=== PATIENT | female | born 1985 | race Two or more races ===

== ENCOUNTER 2022-03-07 08:42 | Emergency (ER) | payer OTHER ==
[2022-03-07 08:46] VITALS: BMI 28.6
[2022-03-07] MEDS ORDERED: ACETAMINOPHEN 1000 MG/100 ML BAG IVPB ONE (09:40)
[2022-03-07] MEDS ORDERED: ACETAMINOPHEN 325 MG TABLET (FP) PO ONE (09:43)
[2022-03-07] MEDS ORDERED: ACETAMINOPHEN 325 MG TABLET (FP) ONE (09:44)
[2022-03-07 11:09] VITALS: TEMP 98.3
[2022-03-07 13:11] VITALS: RESP 18
[2022-03-07 14:02] VITALS: BP 127/83; PULSE 112
[2022-03-07 14:29] LABS: BASO % 0.2 % (0-2.0); EOS % 0.1 % (0-4.5); HEMATOCRIT 32.5 % (32.4-45.2); HEMOGLOBIN 11.3 GM/dL (10.7-15.3); LYMPH % 5.4 % (8-40); MCH 31.2 pg (25.7-33.7); MCHC 34.8 g/dl (32.0-36.0); MEAN CELL VOLUME 89.6 fl (80-96); MEAN PLT VOLUME 8.4 fl (7.5-11.1); MONO % 10.8 % (3.8-10.2); NEUT % 83.5 % (42.8-82.8); PLATELET COUNT 221 10^3/uL (134-434); RBC 3.63 M/mm3 (3.60-5.2); RDW 13.3 % (11.6-15.6); WHITE BLOOD COUNT 9.5 K/mm3 (4.0-10.0)
[2022-03-07 14:45] LABS: CALCIUM 9.5 mg/dL (8.5-10.1)
[2022-03-07 14:46] LABS: ALBUMIN 2.9 g/dl (3.4-5.0); BLOOD UREA NITROGEN 3.3 mg/dL (7-18)
[2022-03-07 14:49] LABS: CREATININE 0.4 mg/dL (0.55-1.3)
[2022-03-23] MEDS ORDERED: OXYTOCIN 30 UNITS in 0.9% NS 30 UNIT/500 ML INFUS.BAG IVPB ONE (06:01)
== END 2022-03-07 15:10 | disposition home or self-care (01) ==
LOC: JER 08:42
DX: U07.1 COVID-19 (principal)
CPT/HCPCS: 0241U-QW; 36415; 80053; 85025; 93005; 93010; 99291

== ENCOUNTER 2022-03-22 16:10 | Inpatient (IN) | payer OTHER ==
[2022-03-22] MEDS ORDERED: DINOPROSTONE 10 MG VAGINAL SUPPOSITORY VG ONE (17:18)
[2022-03-22 17:40] VITALS: BMI 28.6
[2022-03-22] MEDS: ELECTROLYTE-148 SOLN 1,000 ML IV SCH (18:00)
[2022-03-22 18:58] LABS: BASO % 0.4 % (0-2.0); EOS % 0.4 % (0-4.5); HEMATOCRIT 35.1 % (32.4-45.2); HEMOGLOBIN 11.8 GM/dL (10.7-15.3); LYMPH % 17.2 % (8-40); MCH 30.2 pg (25.7-33.7); MCHC 33.7 g/dl (32.0-36.0); MEAN CELL VOLUME 89.5 fl (80-96); MEAN PLT VOLUME 8.9 fl (7.5-11.1); MONO % 7.7 % (3.8-10.2); NEUT % 74.3 % (42.8-82.8); PLATELET COUNT 318 10^3/uL (134-434); RBC 3.92 M/mm3 (3.60-5.2); RDW 13.3 % (11.6-15.6)
[2022-03-23] MEDS: ELECTROLYTE-148 SOLN 1,000 ML IV SCH ×2 (01:40→20:18)
[2022-03-23] MEDS ORDERED: ACETAMINOPHEN 325 MG TABLET (FP) ONE (02:01)
[2022-03-23] MEDS ORDERED: ACETAMINOPHEN 325 MG TABLET (FP) PO ONE (03:30)
[2022-03-23] MEDS ORDERED: OXYTOCIN 30 UNITS in 0.9% NS 30 UNIT/500 ML INFUS.BAG IVPB SCH (06:00)
[2022-03-23] MEDS ORDERED: FENTANYL/BUPIVACAINE/NS/PF - PCEA - 50 ML DISP.SYRIN EP ONE ×2 (15:19→19:11)
[2022-03-23] MEDS ORDERED: OXYTOCIN 20 UNITS in 0.9% NS 20 UNIT/1,000 ML INFUS.BAG IV ONE (19:12)
[2022-03-23] MEDS ORDERED: LIDOCAINE HCL 1% PRESERVATIVE FREE - 30ML VIAL ONE (19:12)
[2022-03-23] MEDS ORDERED: NALOXONE HCL 0.4 MG/ML VIAL IVPUSH PRN (19:32)
[2022-03-23] MEDS ORDERED: FENTANYL/BUPIVACAINE/NS/PF - PCEA - 50 ML DISP.SYRIN EP SCH (19:45)
[2022-03-23] MEDS ORDERED: IBUPROFEN 600 MG TABLET (FP) PO ONE (21:23)
[2022-03-23] MEDS: IBUPROFEN 600 MG TABLET (FP) PO PRN (21:30)
[2022-03-23] MEDS ORDERED: WITCH HAZEL 50% (TUCKS) 40 PAD/JAR PAD TP PRN (22:27)
[2022-03-23] MEDS ORDERED: ACETAMINOPHEN 325 MG TABLET (FP) PO PRN (22:27)
[2022-03-23] MEDS ORDERED: oxyCODONE HCL 5 MG TABLET PO PRN (22:27)
[2022-03-23] MEDS ORDERED: BISACODYL 10 MG SUPP.RECT RC PRN (22:27)
[2022-03-23] MEDS ORDERED: BENZOCAINE 20% 57 GM BOTTLE TP PRN (22:27)
[2022-03-23] MEDS ORDERED: METHYLERGONOVINE MALEATE 0.2 MG/1 ML AMP IM PRN (22:27)
[2022-03-23] MEDS ORDERED: BENZOCAINE 28 GM HEMORRHOIDAL OINTMENT TP PRN (22:27)
[2022-03-23] MEDS ORDERED: OXYTOCIN 20 UNITS in 0.9% NS 20 UNIT/1,000 ML INFUS.BAG IV SCH (22:30)
[2022-03-24 02:00] VITALS: RESP 18
[2022-03-24 07:28] LABS: BASO % 0.3 % (0-2.0); EOS % 0.2 % (0-4.5); HEMATOCRIT 30.5 % (32.4-45.2); HEMOGLOBIN 10.4 GM/dL (10.7-15.3); LYMPH % 13.2 % (8-40); MCH 30.8 pg (25.7-33.7); MCHC 33.9 g/dl (32.0-36.0); MEAN CELL VOLUME 90.6 fl (80-96); MEAN PLT VOLUME 8.6 fl (7.5-11.1); NEUT % 77.3 % (42.8-82.8); PLATELET COUNT 268 10^3/uL (134-434); RBC 3.37 M/mm3 (3.60-5.2); RDW 13.7 % (11.6-15.6); WHITE BLOOD COUNT 15.7 K/mm3 (4.0-10.0)
[2022-03-24] MEDS: IBUPROFEN 600 MG TABLET (FP) PO PRN (14:28)
[2022-03-24] MEDS: SIMETHICONE 80 MG TAB.CHEW (FP) PO PRN ×2 (18:29→21:47)
[2022-03-24] MEDS ORDERED: SENNOSIDES/DOCUSATE COMBO (SENNA PLUS) TABLET (UD) PO PRN (22:00)
[2022-03-25 10:36] VITALS: BP 109/68; PULSE 82; TEMP 99.3
== END 2022-03-25 14:30 | disposition home or self-care (01) | DRG 807 ==
LOC: JLDR 16:10 → J3W 03-23 23:28
PROVIDERS: ADMIT Specialist; ATTEND Specialist
PROC: 3E0P7VZ Introduction of Hormone into Female Reproductive, Via Natural or Artificial Opening (ICD-10-PCS; 2022-03-22)
PROC: 10E0XZZ Delivery of Products of Conception, External Approach (ICD-10-PCS; principal; 2022-03-23)
PROC: 0W8NXZZ Division of Female Perineum, External Approach (ICD-10-PCS; 2022-03-23)
DX: O80 Encounter for full-term uncomplicated delivery (principal); Z37.0 Single live birth; Z3A.39 39 weeks gestation of pregnancy
CPT/HCPCS: 36415; 59409; 85025; C9803-CS; U0003; U0005